=== PATIENT | female | born 1990 | race African-American/Black ===

== ENCOUNTER 2018-04-04 21:17 | Emergency (ER) | payer SELFPAY ==
[2018-04-04 22:07] VITALS: BP 168/85; PULSE 97; RESP 16; TEMP 98.3; O2SAT 100
--- NOTE | 2018-04-04 22:42 | PD ---
HPI Chief Complaint: Oral / Dental Pain or Problem Time Seen by Provider: 22:34 Travel History International Travel<30 days: No Contact w/Intl Traveler<30days: No Traveled to known affect area: No History of Present Illness HPI 27-year-old female presents to the emergency department for complaint of facial swelling associated with dental abscess. Patient is on the care of local dentist who has referred her to an oral surgeon for I&D of the abscess and removal of the third molar. Patient rates pain 3/10 in intensity. Patient has been on antibiotic amoxicillin for several days swelling has been unchanged for 2-3 days. Patient denies fever chills. Patient denies any difficulty swallowing has had no hoarseness or stridor or shortness of breath. Patient states that because of persistent swelling decided to come to the emergency room to be evaluated. Patient denies any acute change in her soft tissue swelling. [facility] Past Medical History Narrative Medical Dental abscess; occasional alcohol use; nursing notes reviewed Medical History: Denies Significant Hx Diminished Hearing: No Immunizations Current: Yes ?: Not LMP: 03/08/18 : 0 : 1 Past Surgical History Surgical History: No Previous Surgery Social History Alcohol Use: Yes (liqour occaisonally) Tobacco Use: No Substance Use: No Allergies-Medications (Allergen,Severity, Reaction): Coded Allergies: No Known Allergies (Verified Allergy, Unknown, 04/05/18) Reported Meds & Prescriptions Reported Meds & Active Scripts Active No Active Prescriptions or Reported Medications Review of Systems Except as stated in HPI: all other systems reviewed are Neg General / Constitutional: No: Fever, Chills HENT: Positive: Dental Difficulties, No: Sore Throat, Congestion, Neck Pain Cardiovascular: No: Chest Pain or Discomfort Respiratory: No: Shortness of Breath Gastrointestinal: No: Vomiting Genitourinary: No: Flank Pain Musculoskeletal: No: Myalgias, Arthralgias Skin: Positive Lumps, No Rash Neurologic: No: Weakness Psychiatric: No: Anxiety (Right submandibular) Hematologic/Lymphatic: Positive: Lymph Node Enlargement (Right submandibular) Physical Exam Narrative GENERAL: Well-developed well nourished female no acute distress no respiratory distress no stridor no hoarseness. SKIN: Warm and dry. HEAD: Normocephalic. EYES: No scleral icterus. No injection or drainage. ENT: Mucous membranes moist airways patent patient has several dental caries with no fluctuant gingival tissue patient has obvious tenderness to palpation of the right third mandibular molar with dental carry. Airway is patent. Right submandibular soft tissue swelling no crossing over the midline. NECK: Supple, trachea midline. No JVD or lymphadenopathy. CARDIOVASCULAR: Regular rate and rhythm without murmurs, gallops, or rubs. RESPIRATORY: Breath sounds equal bilaterally. No accessory muscle use. GASTROINTESTINAL: Abdomen soft, non-tender, nondistended. MUSCULOSKELETAL: No cyanosis, or edema. BACK: Nontender without obvious deformity. No CVA tenderness. Data Data Last Documented VS Vital Signs Date Time Temp Pulse Resp B/P (MAP) Pulse Ox O2 Delivery O2 Flow Rate FiO2 04/04/18 22:07 98.3 97 16 168/85 (112) 100 Orders Orders Basic Metabolic Panel (Bmp) (04/04/18 22:36) Complete Blood Count With Diff (04/04/18 22:36) Iv Access Insert/Monitor (04/04/18 22:36) Clindamycin Inj (Cleocin Inj) (04/04/18 22:45) Sodium Chloride 0.9% Flush (Ns Flush) (04/04/18 22:45) Ed Urine Pregnancytest Poc (04/04/18 22:36) Ketorolac Inj (Toradol Inj) (04/04/18 22:45) Sodium Chlor 0.9% 1000 Ml Inj (Ns 1000 M (04/05/18 00:00) Ct Soft Tiss Neck W Iv Cont (04/05/18 23:58) Iohexol 350 Inj (Omnipaque 350 Inj) (04/05/18 00:22) Labs Laboratory Tests Test 04/04/18 22:15 White Blood Count 16.0 TH/MM3 Red Blood Count 4.66 MIL/MM3 Hemoglobin 14.1 GM/DL Hematocrit 42.2 % Mean Corpuscular Volume 90.5 FL Mean Corpuscular Hemoglobin 30.1 PG Mean Corpuscular Hemoglobin Concent 33.3 % Red Cell Distribution Width 12.8 % Platelet Count 275 TH/MM3 Mean Platelet Volume 9.7 FL Neutrophils (%) (Auto) 76.3 % Lymphocytes (%) (Auto) 12.0 % Monocytes (%) (Auto) 11.3 % Eosinophils (%) (Auto) 0.1 % Basophils (%) (Auto) 0.3 % Neutrophils # (Auto) 12.2 TH/MM3 Lymphocytes # (Auto) 1.9 TH/MM3 Monocytes # (Auto) 1.8 TH/MM3 Eosinophils # (Auto) 0.0 TH/MM3 Basophils # (Auto) 0.1 TH/MM3 CBC Comment DIFF FINAL Differential Comment Blood Urea Nitrogen 9 MG/DL Creatinine 0.98 MG/DL Random Glucose 83 MG/DL Calcium Level 9.7 MG/DL Sodium Level 142 MEQ/L Potassium Level 3.9 MEQ/L Chloride Level 109 MEQ/L Carbon Dioxide Level 20.5 MEQ/L Anion Gap 13 MEQ/L Estimat Glomerular Filtration Rate 84 ML/MIN MDM Medical Decision Making Medical Screen Exam Complete: Yes Emergency Medical Condition: Yes Medical Record Reviewed: Yes Differential Diagnosis Dental abscess, apical abscess, Caleb's angina Narrative Course IV access obtained patient administer clindamycin 900 mg IV and toradol 30 mg iv Diagnosis Primary Impression: Dental abscess Referrals: Rommel Forman DMD 1 day call office in AM 04/05/18 at [phone] after 8:30 AM for appointment by 9:30 AM Patient Instructions: General Instructions Additional Instructions: Follow-up with maxillofacial specialist Dr. Forman in the a.m.; call office after 8:30 AM for appointment by 9:30 AM; [phone] Take antibiotics as prescribed; may take medications with small sips of water otherwise avoid oral intake of foods or beverages until seen by Dr. Forman Return to the emergency department for any concerns or change in condition No work 2 days May take acetaminophen/Tylenol as needed for fever 100.4F or greater Med/Other Pt SpecificInfo: Prescription(s) given Scripts Clindamycin (Clindamycin) 150 Mg Cap 300 MG PO Q6H for Infection for 7 Days, #56 CAP 0 Refills Prov: Adela Quintana MD 04/05/18 Adela Quintana MD Apr 04, 2018 22:42
[2018-04-04] MEDS ORDERED: SODIUM CHLORIDE 0.9% FLUSH 10 ML FLUSH IVF PRN (22:45)
[2018-04-04] MEDS ORDERED: CLINDAMYCIN INJ 900 MG in SODIUM CHLORIDE 0.9% INJ 100 ML IV ONE (22:45)
[2018-04-04] MEDS ORDERED: KETOROLAC TROMETHAMINE 30 MG/ML (IVP) VIAL IV PUSH ONE (22:45)
[2018-04-04 23:27] LABS: AUTOMATED NEUTROPHIL # 12.2 TH/MM3 (1.8-7.7); BASOPHIL # 0.1 TH/MM3 (0-0.2); BASOPHIL % 0.3 % (0.0-2.0); EOSINOPHIL % 0.1 % (0.0-4.0); HEMATOCRIT 42.2 % (35.0-46.0); HEMOGLOBIN 14.1 GM/DL (11.6-15.3); LYMPHOCYTE # 1.9 TH/MM3 (1.0-4.8); MEAN CELL VOLUME 90.5 FL (80.0-100.0); MEAN CORPUSCULAR HEMOGLOBIN 30.1 PG (27.0-34.0); MEAN CORPUSCULAR HGB CONC 33.3 % (32.0-36.0); MEAN PLATELET VOLUME 9.7 FL (7.0-11.0); MONO % 11.3 % (0.0-8.0); MONOCYTE # 1.8 TH/MM3 (0-0.9); NEUT % 76.3 % (16.0-70.0); PLATELET COUNT 275 TH/MM3 (150-450); RED BLOOD COUNT 4.66 MIL/MM3 (4.00-5.30); RED CELL DISTRIBUTION WIDTH 12.8 % (11.6-17.2)
[2018-04-04 23:45] LABS: BICARBONATE 20.5 MEQ/L (21.0-32.0); CALCIUM 9.7 MG/DL (8.5-10.1); CREATININE 0.98 MG/DL (0.50-1.00)
[2018-04-05] MEDS ORDERED: IOHEXOL 350 MG/ML 10 ML VIAL (for RAD DIAG) IVCONTRAST ONE (00:22)
--- NOTE | 2018-04-05 01:14 | RADRPT ---
EXAM DATE: 04/05/2018 12:20 AM EDT AGE/SEX: 27 years / Female INDICATIONS: Right neck pain and swelling. CLINICAL DATA: This is the patient's initial encounter. Patient reports that signs and symptoms have been present for 3 days and indicates a pain score of 8/10. MEDICAL/SURGICAL HISTORY: None. None. RADIATION DOSE: 18.23 CTDI (mGy) COMPARISON: No prior exams available for comparison. TECHNIQUE: Helical acquisition was performed using a multirow detector CT scanner during the adminis tration of 75 ml Omnipaque 350 (iohexol) nonionic water-soluble contrast as a single exam dose. Usi ng automated exposure control and adjustment of the mA and/or kV according to patient size, radiation dose was kept as low as reasonably achievable to obtain optimal diagnostic quality images. DICOM fo rmat image data is available electronically for review and comparison. FINDINGS: Nasopharynx: The nasopharyngeal airway has a normal configuration. No mucosal thickening or mass is seen. Oropharynx: There is some fluid on the right and left mandible correlate for abscess Larynx: The supraglottic, glottic, and infraglottic structures are intact. Parapharyngeal: The parapharyngeal space is intact. Salivary Glands: The parotid and submandibular glands are intact. Lymph Nodes: No enlarged or necrotic-appearing nodes. Thyroid: Homogeneous enhancement without evidence of nodule. Bones: Unremarkable. CONCLUSION: 1. Low density fluid around the angle of mandible on the right suspected related to dental disease. Correlate for abscess along the right angle the mandible Electronically signed by: Galen Pan MD 04/05/2018 1:12 AM EDT
[2018-04-05] MEDS ORDERED: CLIN150C14 PO (01:42)
[2018-04-05] MEDS ORDERED: SODIUM CHLOR 0.9% 1000 ML INJ 1,000 ML IV ONE ×2 (01:45)
[2018-04-05] MEDS ORDERED: DEXAMETHASONE SOD PHOS 4 MG/ML VIAL IV PUSH ONE (01:45)
[2018-04-05 02:50] VITALS: BP 148/80
== END 2018-04-05 02:51 | disposition home or self-care (01) ==
LOC: NEPC 21:17
DX: K04.7 Periapical abscess without sinus (principal); K02.9 Dental caries, unspecified
CPT/HCPCS: 70491; 80048; 84703; 85025; 96365; 96366; 96375; 99285; J1100; J1885; J7030; Q9967